=== PATIENT | male | born 1960 | race Caucasian/White ===

== ENCOUNTER → 2018-02-01 | Outpatient (CLI) | payer MEDICAID | LOC: FIMAGING 12:41 | PROVIDERS: ATTEND Internal Medicine Nephrology | DX: N17.9 Acute kidney failure, unspecified (principal) ==

== ENCOUNTER → 2018-05-14 | Outpatient (CLI) | payer MEDICAID | LOC: FIMAGING 14:30 | PROVIDERS: ATTEND Surgery | DX: S27.1XXD Traumatic hemothorax, subsequent encounter (principal) ==

== ENCOUNTER → 2018-05-17 | Outpatient (CLI) | payer MEDICAID | LOC: FIMAGING 14:53 | PROVIDERS: ATTEND Surgery | DX: Z98.890 Other specified postprocedural states (principal); J86.9 Pyothorax without fistula ==

== ENCOUNTER 2018-09-20 10:30 | Inpatient (IN) | payer MEDICAID ==
--- NOTE | 2018-09-20 10:59 | EDPHY ---
H & P Stated Complaint: Left hand pain Time Seen by Provider: 09/20/18 10:48 HPI/ROS: CHIEF COMPLAINT: Left hand pain HISTORY OF PRESENT ILLNESS: The patient presents the ED with complaints of left hand pain that began 3 weeks ago. The patient saw his primary care provider who ordered x-rays which demonstrated demineralization noted to the bases of the index long in ring fingers. The patient also had blood cultures obtained which demonstrated gram-positive cocci in 1 of the bottles. The patient was noted to have a slightly elevated CRP of 18 and a elevated sed rate of 120. The patient reportedly was hospitalized for pneumonia earlier this year. The patient denies any fever. He has mild pain in his left hand predominantly at the base of the metacarpals with movement. The patient reportedly has been taking anti-inflammatories with improvement of his symptoms. He is not yet taken antibiotics. REVIEW OF SYSTEMS: A comprehensive 10 point review of systems is otherwise negative aside from elements mentioned in the history of present illness. Source: Patient - Personal History Current Tetanus Diphtheria and Acellular Pertussis (TDAP): Yes - Medical/Surgical History Hx Asthma: No Hx Chronic Respiratory Disease: No Hx Diabetes: Yes Hx Cardiac Disease: Yes Hx Renal Disease: No Hx Cirrhosis: No Hx Alcoholism: No Hx HIV/AIDS: No Hx Splenectomy or Spleen Trauma: No Other PMH: DMII, HTN, hyperlipidemia, pna with surg procedure - Social History Smoking Status: Never smoked - Physical Exam Exam: General Appearance: Alert, no distress Eyes: Pupils equal and round no pallor or injection ENT, Mouth: Mucous membranes moist Respiratory: There are no retractions, lungs are clear to auscultation Cardiovascular: Regular rate and rhythm Gastrointestinal: Abdomen is soft and nontender, no masses, bowel sounds normal Neurological: 5/5 strength noted all 4 extremities Skin: Mild erythema noted to the dorsum of the left wrist Musculoskeletal: Neck is supple nontender Extremities: Mild tenderness to palpation noted at the dorsum of the left 2nd, 3rd and 4th metacarpals. Psychiatric: Patient is oriented X 3, there is no agitation Constitutional: Initial Vital Signs Temperature (C) 36.5 C 09/20/18 10:41 Heart Rate 82 09/20/18 10:41 Respiratory Rate 16 09/20/18 10:41 Blood Pressure 160/101 H 09/20/18 10:41 O2 Sat (%) 95 09/20/18 10:41 O2 Delivery Mode Room Air Allergies/Adverse Reactions: No Known Allergies Allergy (Verified 09/20/18 10:44) Home Medications: Medication Instructions Recorded Aspirin [Aspirin 81mg (*)] 81 mg PO HS 04/29/18 Atorvastatin Calcium [Lipitor 10 10 mg PO DAILY 04/29/18 mg (*)] Lisinopril [Zestril 5 mg (*)] 5 mg PO DAILY 04/29/18 metFORMIN HCL [Glucophage 500 mg 500 mg PO BIDMEAL 04/29/18 (*)] Insulin Glargine [Lantus Syringe] 28 units SC DAILY #1 vial 05/11/18 Unk Anti Inflam Med From Pcp 09/20/18 Medical Decision Making ED Course/Re-evaluation: I reviewed the patient's past medical records. He was treated for pneumonia complicated by empyema in April of this year. The patient is outpatient images are reviewed in addition to his blood culture which demonstrates gram-positive cocci which is not yet differentiated. The patient was taken for an MRI of the extremity which demonstrates erosive changes consistent with osteomyelitis involving the left wrist and hand. The patient had blood cultures x2 obtained in the emergency department. The patient will be admitted to the hospitalist service for further evaluation and management. Differential Diagnosis: Differential diagnosis considered includes septic arthritis, osteomyelitis, abscess, necrotizing fasciitis, gouty arthritis - Data Points Laboratory Results: Laboratory Results 09/20/18 11:02 09/20/18 11:02 09/20/18 09/20/18 11:02 11:02 WBC 5.42 10^3/uL 10^3/uL (3.80-9.50) RBC 4.69 10^6/uL 10^6/uL (4.40-6.38) Hgb 12.4 g/dL L g/dL (13.7-17.5) Hct 37.7 % L % (40.0-51.0) MCV 80.4 fL L fL (81.5-99.8) MCH 26.4 pg L pg (27.9-34.1) MCHC 32.9 g/dL g/dL (32.4-36.7) RDW 16.4 % H % (11.5-15.2) Plt Count 339 10^3/uL 10^3/uL (150-400) MPV 9.2 fL fL (8.7-11.7) Neut % (Auto) 66.7 % % (39.3-74.2) Lymph % (Auto) 19.2 % % (15.0-45.0) [place] % (Auto) 11.4 % % (4.5-13.0) Eos % (Auto) 1.8 % % (0.6-7.6) Baso % (Auto) 0.7 % % (0.3-1.7) Nucleat RBC Rel Count 0.0 % % (0.0-0.2) Absolute Neuts (auto) 3.61 10^3/uL 10^3/uL (1.70-6.50) Absolute Lymphs (auto) 1.04 10^3/uL 10^3/uL (1.00-3.00) Absolute Monos (auto) 0.62 10^3/uL 10^3/uL (0.30-0.80) Absolute Eos (auto) 0.10 10^3/uL 10^3/uL (0.03-0.40) Absolute Basos (auto) 0.04 10^3/uL 10^3/uL (0.02-0.10) Absolute Nucleated RBC 0.00 10^3/uL 10^3/uL (0-0.01) Immature Gran % 0.2 % % (0.0-1.1) Immature Gran # 0.01 10^3/uL 10^3/uL (0.00-0.10) Sodium 136 mEq/L mEq/L (135-145) Potassium 5.3 mEq/L H mEq/L (3.3-5.0) Chloride 106 mEq/L mEq/L (97-110) Carbon Dioxide 18 mEq/l L mEq/l (22-31) Anion Gap 12 mEq/L mEq/L (6-14) BUN 39 mg/dL H mg/dL (7-23) Creatinine 1.4 mg/dL H mg/dL (0.7-1.3) Estimated GFR 52 Glucose 372 mg/dL H mg/dL (70-100) Calcium 9.6 mg/dL mg/dL (8.5-10.4) Departure - Departure Disposition: [facility] Inpatient Acute Clinical Impression: Osteomyelitis of left hand Condition: Fair Referrals: Zion Albrecht MD [Primary Care Provider] - As per Instructions
[2018-09-20 11:11] LABS: PLATELET COUNT 339 10^3/uL (150-400)
[2018-09-20] MEDS ORDERED: GADOBUTROL 10 ML VIAL IVP ONE (13:10)
[2018-09-20] MEDS ORDERED: ONDANSETRON 4 MG/2 ML VIAL IVP PRN (15:19)
[2018-09-20] MEDS ORDERED: ONDANSETRON DISINTEGRATING 4 MG TAB PO PRN (15:19)
[2018-09-20 15:36] LABS: INR 1.02 (0.83-1.16); PROTIME(PATIENT) 13.6 SEC (12.0-15.0)
[2018-09-20] MEDS: NS 1,000 ML IV SCH (15:41)
[2018-09-20] MEDS ORDERED: D50W 25 GM/50 ML SYR IVP PRN (16:15)
[2018-09-20] MEDS: ceFAZolin 2 GM/DEXTROSE 100 ML IV SCH (16:44)
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
--- NOTE | 2018-09-20 17:12 | PCMIDPN ---
Assessment/Plan: Assessment/Plan: * MSSA bacteremia: Patient with 1 set of blood cultures drawn by primary care physician growing MSSA. No clear etiology for infection although does have some dry skin over hand. Will begin cefazolin post attempted aspiration of left wrist by Orthopedic surgery. Repeat blood cultures have been obtained prior to initiation of antibiotic therapy. Will obtain transthoracic echocardiogram. * Left wrist inflammatory arthropathy: Presentation is unusual for osteomyelitis unless associated with possible foreign body noted on imaging. Clinical findings most suggestive of inflammatory arthropathy such as gout or pseudogout. Will consult hand surgery for further assessment and possible aspiration. * Neck pain: Given presence of MSSA bacteremia, this is concerning for possibility of diskitis or vertebral osteomyelitis. Will obtain C-spine MRI ( will have to be done tomorrow since he received gadolinium are ready today). Time spent, greater than 35 min, which greater than half was spent in education/ counseling/coordination of care related to MSSA bacteremia, wrist arthropathy, and neck pain as outlined above including plan of care. 09/20/18 17:07 09/20/18 17:22 Subjective: Patient seen by our service in April for Streptococcus constellatus empyema which required VATS and decortication. Asked by hospitalist service to reassess patient who was admitted with bacteremia and MRI findings of left wrist osteomyelitis. Patient complains of left wrist pain for 3 weeks. He has been treated empirically for gout which she has had in the past with improvement in his symptoms while taking ibuprofen and colchicine. He notes the swelling has decreased by approximately half. No preceding injury to his hand. He cannot fully extend his digits. No pain in forearm or upper arm. Also complains of neck pain over the lateral cervical region on the left which is been present for approximately same duration of time. No preceding skin injury although does have dry skin over digits. Reviewed blood culture findings with primary care physician with 1 set of blood culture showing growth of MSSA. Other labs notable for creatinine of 1.5, CRP of 18.8 (0-4.9), uric acid 8.1, ESR 120, and rheumatoid factor being negative. Objective: Vital Signs Temp Pulse Resp BP Pulse Ox 36.6 C 85 16 146/88 H 95 09/20/18 15:33 09/20/18 15:33 09/20/18 15:20 09/20/18 15:33 09/20/18 15:33 09/19/18 09/20/18 09/21/18 05:59 05:59 05:59 Intake Total 0 Balance 0 Laboratory Tests 09/20/18 09/20/18 11:02 11:02 WBC 5.42 Hct 37.7 L Plt Count 339 Neut % (Auto) 66.7 Lymph % (Auto) 19.2 Creatinine 1.4 H Blood culture 09/17/2018 showing MSSA (unclear how many sets drawn) MRI of hand with erosive changes of the 2nd and 3rd carpometacarpal joints as well as other carpal bone; mild joint effusion noted; query metal foreign body in this region (patient does not remember preceding injury) - Physical Exam General Appearance: alert, no apparent distress, non-toxic EENT: No scleral icterus, No conjunctival petechiae Respiratory: lungs clear, No respiratory distress Neck: tender lateral (Left with lateral rotation/flexion) Cardiac/Chest: regular rate, rhythm, No systolic murmur Extremities: inflammation (Left hand shows edema most prominent over dorsal aspect with mild pain with range of motion of wrist; cannot fully extend digits ; no overlying erythema; warmth is present) Abdomen: non-tender, No distended Skin: other (Some dry flaking skin over digits of left hand) Neuro/Psych: No confused ICD10 Worksheet Patient Problems: Problems Problem Status Onset Osteomyelitis of left hand Acute Hyperglycemia Acute Pleural effusion on left Acute Right lower lobe lung mass Acute
[2018-09-20] MEDS ORDERED: LIDOCAINE 1% 5 ML SDV IF ONE (17:30)
[2018-09-20] MEDS: ACETAMINOPHEN 325 MG TAB PO PRN ×2 (17:38→21:34)
[2018-09-20] MEDS: INSULIN LISPRO 100 UNIT/ML SC SCH (17:39)
[2018-09-20] MEDS: ASPIRIN EC 81 MG TAB PO SCH (20:51)
--- NOTE | 2018-09-20 21:58 | HOSPPROG ---
Hospitalist Progress Note Assessment/Plan: 57 yo M with hx of prior empyema presenting with left wrist swelling and pain and imaging concerning for osteomyelitis and MSSA bacteremia # left hand osteomyelitis: noted on MRI imaging both here and also at [facility] prior to admission. Ortho and ID consulted, both agree this is an unusual presentation for osteo with only minimal redness/edema and acute presentation however there is a possible foreign body noted on imaging which could be related. Aspiration attempted by ortho and sent for culture, stated on ancef as next. Will monitor. # scott: with baseline creatinine of 0.9 and elevated to 1.4 on admission, presumably related to pre renal etiology, will provide IVF overnight and recheck in am, will check bladder scan as patient has had hx of urinary retention # MSSA bacteremia: from labs drawn from outside facility, started on ancef, repeat cultures sent # hx of empyema # DM2: poorly controlled in the past, started on SSI, oral meds held # IP status, will require > 48 hours stay for eval/mgmt of above Patient new to my care. Old records reviewed and summarized as above. Care plan reviewed with ER doctor and SALVADOR Alberts. Please see SALVADOR Alberts separate H&P for further details. Objective: Vital Signs Temp Pulse Resp BP Pulse Ox 37.0 C 86 16 130/76 H 96 09/20/18 19:41 09/20/18 19:41 09/20/18 19:41 09/20/18 19:41 09/20/18 19:41 Microbiology 09/20/18 17:21 Gram Stain - Final Hand - Swab 09/20/18 17:21 Gram Stain - Final Synovial Fluid - Aspirate Anaerobic Culture - Final 09/19/18 09/20/18 09/21/18 05:59 05:59 05:59 Intake Total 0 Balance 0 PT 13.6 SEC (12.0-15.0) 09/20/18 13:00 INR 1.02 (0.83-1.16) 09/20/18 13:00 ICD10 Worksheet Patient Problems: Problems Problem Status Onset Hyperglycemia Acute Pleural effusion on left Acute Right lower lobe lung mass Acute Osteomyelitis of left hand Acute
[2018-09-21] MEDS: NS 1,000 ML IV SCH ×2 (00:11→09:03)
[2018-09-21] MEDS: ceFAZolin 2 GM/DEXTROSE 100 ML IV SCH ×4 (00:11→23:32)
[2018-09-21 05:39] LABS: PLATELET COUNT 308 10^3/uL (150-400)
[2018-09-21] MEDS: ACETAMINOPHEN 325 MG TAB PO PRN ×3 (07:06→20:00)
[2018-09-21] MEDS: COLCHICINE 0.6 MG CAP/TAB PO SCH (09:03)
[2018-09-21] MEDS: ATORVASTATIN CALCIUM 10 MG TAB PO SCH (09:03)
[2018-09-21] MEDS: INSULIN LISPRO 100 UNIT/ML SC SCH ×3 (09:03→17:49)
--- NOTE | 2018-09-21 10:08 | PDMN ---
Medical Necessity Medical necessity: MCG M600 Osteomyelitis 3 days: 57 yo presents w/ L hand/ wrist edema and pain. BC from PCP + staph aureus. Assessment reveals probable osteomyelitis vs. gouty arthritis vs. septic arthritis vs. foreign body. Hand surg and ID consults ordered. Aspiration cx of hand/wrist pending. Per ID BC concerning, need to look at possibility of diskitis or vertebral osteomyelitis as pt c/o neck pain also. MRI pending. IV antibx and IVF started, pt NPO for now. IP status, will require > 48 hours stay for eval/mgmt of above. Hx pneumonia w/ empyema April 2018, HTN, DM, HLD
--- NOTE | 2018-09-21 11:50 | HOSPPROG ---
Hospitalist Progress Note Assessment/Plan: 57-year-old with a history significant for diabetes and recent empyema in April of this year is admitted with bacteremia. He lives up in [place] and sees Dr. Staley who was evaluating left wrist pain and did blood cultures as well as other blood work, this revealed MSSA bacteremia as well as an elevated sed rate of 120. He had an MRI on admission which had finding suggestive of osteomyelitis with significant erosive changes. His clinical findings however are fairly benign he has had no fevers he does complain of left wrist pain but believes this is consistent with his history of gout. He is being admitted for his positive blood culture in further evaluation of this cause. # bacteremia, MSSA done as an outpatient. Source is unclear, possible left wrist however he also has some neck pain and is undergoing an MRI of his C- spine to rule out epidural abscess. Appreciate ID input * Continue IV antibiotics * Follow up on repeat blood cultures * Evaluation including MRI of his C-spine * Follow-up echocardiogram # left wrist pain, evidence of possible osteomyelitis on MRI however clinical presentation is somewhat unusual for this. Will continue to treat for likely osteomyelitis and appreciate ID and Hand Ortho input. # acute renal insufficiency with elevated creatinine on admission, this has improved today, will continue to monitor and avoid nephrotoxins. # gout, on colchicine and indomethacin. Not currently on allopurinol. # diabetes, type 2 continue his usual medications and add sliding scale insulin # hypertension, stable # dyslipidemia # history of pneumonia complicated by empyema in April of 2018 Subjective: Patient new to me and chart reviewed. Complains of minimal pain in his left wrist, swelling is much improved. Denies any fevers or chills Objective: Vital Signs Temp Pulse Resp BP Pulse Ox 36.7 C 85 16 133/77 H 93 09/21/18 11:29 09/21/18 11:29 09/21/18 11:29 09/21/18 11:29 09/21/18 11:29 Microbiology 09/20/18 17:21 Gram Stain - Final Hand - Swab 09/20/18 17:21 Gram Stain - Final Synovial Fluid - Aspirate Anaerobic Culture - Final Laboratory Results 09/21/18 04:37 09/21/18 04:37 09/20/18 09/21/18 09/22/18 05:59 05:59 05:59 Intake Total 0 Balance 0 PT 13.6 SEC (12.0-15.0) 09/20/18 13:00 INR 1.02 (0.83-1.16) 09/20/18 13:00 - Physical Exam Constitutional: no apparent distress Eyes: PERRL Ears, Nose, Mouth, Throat: moist mucous membranes Cardiovascular: regular rate and rhythym, no murmur, rub, or gallop Respiratory: no respiratory distress, clear to auscultation Gastrointestinal: soft, non-tender abdomen Genitourinary: no bladder fullness Skin: erythema (Left wrist), induration Musculoskeletal: no joint effusions, joint tenderness (Left wrist) Neurologic: AAOx3 Psychiatric: interacting appropriately, not anxious ICD10 Worksheet Patient Problems: Problems Problem Status Onset Hyperglycemia Acute Pleural effusion on left Acute Right lower lobe lung mass Acute Osteomyelitis of left hand Acute
--- NOTE | 2018-09-21 11:51 | CPEKG ---
Test Reason : OPEN Blood Pressure : / mmHG Vent. Rate : 089 BPM Atrial Rate : 089 BPM P-R Int : 140 ms QRS Dur : 086 ms QT Int : 367 ms P-R-T Axes : 048 -44 043 degrees QTc Int : 447 ms Sinus rhythm Left axis deviation Confirmed by Mauricio Robert ([id number]) on 09/21/2018 11:51:20 AM Referred By: Confirmed By:Mauricio Robert
--- NOTE | 2018-09-21 12:02 | ASMTCMCOM ---
CM Note CM Note Notes: Pt is a 57 y/o man admitted for osteomyelitis. ID is consulting. Pt is currently on iv ancef. Needs are TBD at this time. CM to follow. Plan: TBD Date Signed: 09/21/2018 12:01 PM Electronically Signed By:HIGINIO Mirza
--- NOTE | 2018-09-21 12:20 | ECHO ---
[email or web address] [address] Main: [phone] Fax: Transthoracic Echocardiogram Name: LYNDSEY QUIROGA MR#: [id number] Study Date: 09/21/2018 Study Time: 10:52 AM Date of : 1960 Age: 57 year(s) Height: 170.2 cm (67 in.) Weight: 81.65 kg (180 lb.) BSA: 1.93 m2 Gender: Male Examination: Echo Indication: MSSA bacteremia, assess for endocarditis; h/o DM2 HTN Image Quality: Adequate Contrast: Requested by: Marquis Roca BP: 137 mmHg/84 mmHg Heart Rate: Rhythm: Indication: MSSA bacteremia, assess for endocarditis; h/o DM2 HTN Procedure Staff Asset Management Lead: Rosalia Talbot [facility] [place] Reading Physician: Faisal Montoya MD Requesting Provider: Conclusions: Normal size left ventricle. No LV hypertrophy. Low normal left ventricular systolic function. EF is 54 %. No regional wall motion abnormality. There is mild thickening of the mitral valve leaflets. Mild to moderate mitral regurgitation. The aortic valve is tri-leaflet and functions normally. The tricuspid valve is normal in appearance and function. Mild tricuspid regurgitation is present. Right ventricular systolic pressure measures 31mmHg. There is no pulmonic regurgitation seen. No pericardial effusion. In comparison to prior echocardiography from April 2018 there is now mitral regurgitation (mild to moderate) noted. LVEF has dropped from 69% to 54%. Measurements: Chambers Valvular Assessment AV/MV Valvular Assessment TV/PV Normal Normal Normal Name Value Range Name Value Range Name Value Range Ao Yudelka (MM): 3.2 cm (2.2 cm-3.7 AV Vmax: 1.12 m/s (1 m/s-1.7 TR Vmax: 2.53 mm/s ( - ) cm) m/s) TR PGmax: 26 mmHg ( - ) IVSd (2D): 1.1 cm (0.6 cm-1.1 AV maxP mmHg ( - ) syst. PAP: 31 mmHg ( - ) cm) LVOT Vmax: 0.84 m/s (0.7 m/s-1.1 PV Vmax: 1.05 m/s (0.6 m/s-0.9 LVDd (2D): 4.5 cm (4.2 cm-5.9 m/s) m/s) cm) HARMAN (Vmax): 2.6 cm2 ( - ) PV PGmax: 4 mmHg ( - ) LVDs (2D): 3.2 cm (2.1 cm-4 MV E Vmax: 0.35 m/s ( - ) cm) MV A Vmax: 0.67 m/s ( - ) MV E/A: 0.52 ( - ) Patient: LYNDSEY QUIROGA Study Date: 09/21/2018 Page 1 of 2 10:52 AM LVPWd (2D): 0.8 cm (0.6 cm-1 cm) LVOTd 2.1 cm 2.1 cm mm LVEF (BP): 54 % (>=55 %) RVDd(2D): 3.2 cm (1.9 cm-3.8 cmmm) Continued Measurements: Chambers Valvular Assessment AV/MV Valvular Assessment TV/PV Name Value Name Value Name Value LADs: 3.6 cm MV DecTime: 246 m/s CVP (est.): 5 mmHg LADs Lon.2 cm MV E' Septal: 0.04 m/s LA Area: 18.2 cm2 MV E/E' Septal: 8.00 LA Volume: 49 ml MV E/E' Lateral: 5.40 LA Volume Index: 25.4 ml/m2 TAPSE: 1.7 cm RA Area: 13.5 cm2 Additional Vessels Name Value Ao Ascendin.1 cm Findings: Left Ventricle: Normal size left ventricle. No LV hypertrophy. Low normal left ventricular systolic function. EF is 54 %. No regional wall motion abnormality. Normal diastolic LV function. Right Ventricle: Normal size right ventricle. Normal RV function. Left Atrium: The left atrium is normal in size. Right Atrium: The right atrium is normal in size. Mitral Valve: There is mild thickening of the mitral valve leaflets. Mild to moderate mitral regurgitation. No mitral stenosis is present. There is no mitral valve vegetation. Aortic Valve: The aortic valve is tri-leaflet and functions normally. There is no aortic valve regurgitation. No aortic valve stenosis is present. There is no aortic valve vegetation. Tricuspid Valve: The tricuspid valve is normal in appearance and function. Mild tricuspid regurgitation is present. Right ventricular systolic pressure measures 31mmHg. Borderline elevated pumonary artery pressure. No tricuspid valve vegetation. Pulmonic Valve: Pulmonary valve not well visualized. There is no pulmonic regurgitation seen. Aorta: Normal size aortic root measuring 3.2 cm. Normal size ascending aorta measuring 3.1 cm. IVC: Normal size and course of the IVC. Pericardium: No pericardial effusion. (No Signature Object) Patient: LYNDSEY QUIROGA Study Date: 09/21/2018 Page 2 of 2 10:52 AM [id number]
--- NOTE | 2018-09-21 12:29 | PDCONSULT ---
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 Yesterday recieved a call regarding patient for a hand/ortho consult. Patient appeared to have some form of inflammatory arthropathy of left wrist/hand. He states he had history of Gout which has been treated with cholchicine and NSAIDs. 1 of 3 blood cultures take by PCP was pos for MSSA. ID (Dr. Roca) has been consulted, and Hospitalist is currently following. PHYSICAL EXAM Left wrist examined shows mild to moderate swelling. No erythema and no warmth noted. No fluctuance. Distal Nuerovasculature intact. wiggles fingers with discomfort. PROCEDURE Patients left hand was prepped with chlorhexadol. 2cc 1% Lidocane was used for anesthetic. 18G needle was used to attempt aspiration of CMC joint over 1 and 2 digit region. No fluid was obtainable. Slight amount of blood aspirated. This was sent for gram stain and cultures. LAB RESULTS Gram stain shows no organisms Culture pending ASSESSMENT/PLAN Patient confirmed to have Bacteremia and is being treated by ID (Dr. Roca) with IV ABX Presentation is very abnormal for septic wrist/hand. Exam does not show significant signs for active hand infection. PE and presentation is inflammatory arthropathy, acute on chronic from possible gout. However there may be superimposed infection. But undetermined at this time. Dr Lucio does not feel surgery/wash-out is warranted at this point in time. He suggests ID continue management with IV abx for bacteremia, and patient continue gout treatment. If symptoms change, or swelling, redness, warmth present over wrist, please inform us, and we will consider a washout of his left hand/wrist. We appreciate the consult, and are here for any further questions or concerns. Ayad RIDLEY for Dr. Naveed LEES (Orthopedic Surgery)
--- NOTE | 2018-09-21 12:42 | PCMIDPN ---
Assessment/Plan: # MSSA bacteremia. Echo results reviewed, shows a reduction in ejection fraction to 54%, new [id number] mitral regurgitation. Reviewed MRI findings L wrist. Diffuse right hand swelling seems somewhat atypical for infection, without focal area of erythema or joint swelling. Patient clinically improved on therapy for gout. --MRI C-spine --continue cefazolin --follow up on blood cx repeated on admission --may have to consider GIDEON with worsening MR completely exclude endocarditis # Left-sided empyema/pneumonia due to Streptococcus Constellatus - source likely oral. S/p VATS 05/02/2018 and 05/06/2018 # Poor DM control w HgAIC = 10 : likely predisposing to recurrent infections meds cefazolin 2gm IV q8h, #1 micro 09/20 blood cx (2) : pending 09/20 joint aspirate --> put in swab container: gram stain neg, Cx pending 09/17 blood cx 1 set MSSA 05/05/18 HIV negative Subjective: Patient admits to neck pain with specific questioning. Also with left hand pain and limited range of motion. No side effects of antibiotics were noted Objective: Vital Signs Temp Pulse Resp BP Pulse Ox 36.7 C 85 16 133/77 H 93 09/21/18 11:29 09/21/18 11:29 09/21/18 11:29 09/21/18 11:29 09/21/18 11:29 Microbiology 09/20/18 17:21 Gram Stain - Final Hand - Swab 09/20/18 17:21 Gram Stain - Final Synovial Fluid - Aspirate Anaerobic Culture - Final Laboratory Results 09/21/18 04:37 09/21/18 04:37 09/20/18 09/21/18 09/22/18 05:59 05:59 05:59 Intake Total 0 Balance 0 - Physical Exam General Appearance: alert, no apparent distress EENT: pale conjunctiva, poor dentition, No thrush Respiratory: lungs clear, No accessory muscle use Neck: tender lateral Cardiac/Chest: regular rate, rhythm, No systolic murmur Extremities: other (Diffuse L hand swelling, with limited ROM wrist ), No pedal edema Abdomen: non-tender, soft Skin: No rash, No embolic lesions Neuro/Psych: alert, normal mood/affect, oriented x 3 - Time Spent With Patient Time Spent with Patient: greater than 35 minutes Time Spent with Patient: Greater than 35 minutes spent on this patients care, greater than 50% of time spent counseling, educating, and coordinating care regarding the above mentioned plan. ICD10 Worksheet Patient Problems: Problems Problem Status Onset Osteomyelitis of left hand Acute Hyperglycemia Acute Pleural effusion on left Acute Right lower lobe lung mass Acute
[2018-09-21] MEDS ORDERED: GADOBUTROL 10 ML VIAL IVP ONE (16:36)
[2018-09-21] MEDS: ASPIRIN EC 81 MG TAB PO SCH (20:00)
[2018-09-21] MEDS ORDERED: INSULIN LISPRO 100 UNIT/ML SC ONE (21:45)
[2018-09-21] MEDS: MELATONIN 3 MG TAB PO PRN (22:26)
[2018-09-22 05:21] LABS: PLATELET COUNT 325 10^3/uL (150-400)
--- NOTE | 2018-09-22 08:35 | PDCONSULT ---
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 Yesterday recieved a call regarding patient for a hand/ortho consult. Patient appeared to have some form of inflammatory arthropathy of left wrist/hand. He states he had history of Gout which has been treated with cholchicine and NSAIDs. 1 of 3 blood cultures take by PCP was pos for MSSA. ID (Dr. Roca) has been consulted, and Hospitalist is currently following. PHYSICAL EXAM Left wrist examined shows mild to moderate swelling. No erythema and no warmth noted. No fluctuance. Distal Nuerovasculature intact. wiggles fingers with discomfort. Same/ mild improvement since seen yesterday. PROCEDURE Patients left hand was prepped with chlorhexadol. 2cc 1% Lidocane was used for anesthetic. 18G needle was used to attempt aspiration of CMC joint over 1 and 2 digit region. No fluid was obtainable. Slight amount of blood aspirated. This was sent for gram stain and cultures. LAB RESULTS Joint aspirate: Gram stain shows no organisms Culture pending Blood Cultures: No growth after 36 hours ASSESSMENT/PLAN Patient is being treated by ID (Dr. Roca) with IV ABX. Echo has been ordered to r/o endocarditis Presentation is very abnormal for septic wrist/hand. Exam does not show significant signs for active hand infection. PE and presentation is inflammatory arthropathy, acute on chronic from possible gout. At this point in time it appears his left wrist pain is most likely crystalopathy in nature. Dr Lucio does not feel surgery/wash-out is warranted at this point in time. He suggests ID continue management with IV abx for bacteremia, and patient continue gout treatment. If symptoms change, or swelling, redness, warmth present over wrist, please inform us, and we will consider a washout of his left hand/wrist. We appreciate the consult, and are here for any further questions or concerns. Ayad RIDLEY for Dr. Naveed LEES (Orthopedic Surgery)
[2018-09-22] MEDS: INSULIN LISPRO 100 UNIT/ML SC SCH ×3 (09:16→17:27)
[2018-09-22] MEDS: ceFAZolin 2 GM/DEXTROSE 100 ML IV SCH ×3 (09:16→23:37)
[2018-09-22] MEDS: COLCHICINE 0.6 MG CAP/TAB PO SCH (09:17)
[2018-09-22] MEDS: ATORVASTATIN CALCIUM 10 MG TAB PO SCH (09:17)
--- NOTE | 2018-09-22 09:50 | PCMIDPN ---
Assessment/Plan: # MSSA bacteremia. Echo results reviewed, shows a reduction in ejection fraction to 54%, new [id number] mitral regurgitation. Now with left paraspinous C2/C3 through C5/C6 phlegmon 4 x 2 x 6 cm with to smaller abscess , osteomyelitis of the left C4-C5 facet; no epidural abscess or diskitis --neurosurgery consult --GIDEON to evaluate mitral valve --due to recurrent severe infection, check immunoglobulins, repeat HIV screen --check labs in the a.m. # history of left-sided empyema/pneumonia due to Streptococcus Constellatus - source likely oral. S/p VATS 05/02/2018 and 05/06/2018 # Poor DM control w HgAIC = 10 : likely predisposing to recurrent infections meds cefazolin 2gm IV q8h, #2 micro 09/20 blood cx (2) : NGTD 09/20 joint aspirate --> put in swab container: gram stain neg, Cx pending 09/17 blood cx 1 set MSSA (From outside lab, record in chart) 05/05/18 HIV negative Subjective: Patient states that he has been unable to use his left hand x3 weeks. No residual left hand pain. Mild swelling of the left hand that is significantly improved. Denies chest pain or shortness of breath. His left neck pain is improved since admission. Objective: Vital Signs Temp Pulse Resp BP Pulse Ox 37.0 C 94 20 138/91 H 92 09/22/18 07:57 09/22/18 07:57 09/22/18 07:57 09/22/18 07:57 09/22/18 07:57 Microbiology 09/20/18 17:21 Gram Stain - Final Hand - Swab Laboratory Results 09/22/18 04:43 09/22/18 04:43 09/21/18 09/22/18 09/23/18 05:59 05:59 05:59 Intake Total 0 1450 Balance 0 1450 Exam Palmar skin breakdown, cracking - Physical Exam General Appearance: alert, no apparent distress, non-toxic EENT: poor dentition Respiratory: lungs clear, No accessory muscle use Cardiac/Chest: regular rate, rhythm, No systolic murmur Extremities: other (Left hand edema), No pedal edema Abdomen: non-tender, soft Male Genitalia: No burks Skin: No rash Neuro/Psych: alert, normal mood/affect, oriented x 3, motor weakness (Left hand both extension and flexion. Motor was intact at shoulder and elbow bilaterally) , other (Left arm wasting) - Time Spent With Patient Time Spent with Patient: greater than 35 minutes (care coordinated with Neurosurg team and Dr. Camargo) Time Spent with Patient: Greater than 35 minutes spent on this patients care, greater than 50% of time spent counseling, educating, and coordinating care regarding the above mentioned plan. ICD10 Worksheet Patient Problems: Problems Problem Status Onset Osteomyelitis of left hand Acute Hyperglycemia Acute Pleural effusion on left Acute Right lower lobe lung mass Acute
[2018-09-22] MEDS ORDERED: ALTEPLASE 2 MG VIAL IVP PRN (10:23)
[2018-09-22] MEDS ORDERED: NS 1,000 ML IV ONE (16:07)
--- NOTE | 2018-09-22 16:07 | PDCONSULT ---
Barrel Assembler Helper Note: Patient ate some breakfast and lunch today. Will proceed with GIDEON in the morning. NPO after midnight. Spoke with patient, who was in agreement with these plans.
--- NOTE | 2018-09-22 16:28 | HOSPPROG ---
Hospitalist Progress Note Assessment/Plan: #MSSA bacteremia: C4-5 osteo, C2/3-C5/6 phlegmon. TTE shows reduced EF, progressive MR. -NSGY consulted with concern of nerve impingement, LUE weakness -cont IV abx -GIDEON in morning # Left wrist pain: gout vs infection? Continue treatment for both #RALPH: resolved. # gout, on colchicine and indomethacin. Not currently on allopurinol. # DM 2: A1c 10%. SSI, may add low-dose glargine # HTN: restart ACEI now that Cr improved #HLD: statin # h/o empyema: April 2018 #Diet: NPO after MN #Disp: inpatient admission for IV abx, GIDEON. Case d/w Dr. Li Subjective: left arm weakness for past 3 weeks Objective: Vital Signs Temp Pulse Resp BP Pulse Ox 36.8 C 71 18 147/88 H 96 09/22/18 16:00 09/22/18 16:00 09/22/18 16:00 09/22/18 16:00 09/22/18 16:00 Microbiology 09/20/18 17:21 Gram Stain - Final Hand - Swab Laboratory Results 09/22/18 04:43 09/22/18 04:43 09/21/18 09/22/18 09/23/18 05:59 05:59 05:59 Intake Total 0 1450 Balance 0 1450 PT 13.6 SEC (12.0-15.0) 09/20/18 13:00 INR 1.02 (0.83-1.16) 09/20/18 13:00 - Time Spent With Patient Time Spent with Patient: greater than 35 minutes Time Spent with Patient: Greater than 35 minutes spent on this patients care, greater than 50% of time spent counseling, educating, and coordinating care regarding the above mentioned plan. - Physical Exam Constitutional: other (thin) Eyes: PERRL Ears, Nose, Mouth, Throat: moist mucous membranes Cardiovascular: regular rate and rhythym Respiratory: no respiratory distress Gastrointestinal: normoactive bowel sounds Genitourinary: No burks in urethra Skin: warm Musculoskeletal: other (decreased left hand otolaryngologist. Hands swollen, no TTP. Moderate significant of LUE compared to right) Neurologic: CN II-XII Intact Psychiatric: interacting appropriately ICD10 Worksheet Patient Problems: Problems Problem Status Onset Osteomyelitis of left hand Acute Hyperglycemia Acute Pleural effusion on left Acute Right lower lobe lung mass Acute
[2018-09-22] MEDS: ASPIRIN EC 81 MG TAB PO SCH (20:09)
[2018-09-22] MEDS: ACETAMINOPHEN 325 MG TAB PO PRN (20:19)
[2018-09-22] MEDS: MELATONIN 3 MG TAB PO PRN (20:19)
[2018-09-22] MEDS ORDERED: INSULIN LISPRO 100 UNIT/ML SC ONE (21:00)
--- NOTE | 2018-09-23 02:27 | GCON ---
DATE OF CONSULTATION: 09/22/2018 HISTORY OF PRESENT ILLNESS: The patient is a 57-year-old male who presented to the emergency department due to complaints of left wrist pain and edema as well as neck pain. He was recently treated for empyema and pneumonia that required IV antibiotics. His left wrist pain and neck pain have been present for the past 3 weeks. He denies any upper extremity radicular pain or numbness or tingling. He has had limited range of motion of his left hand due to the pain as well as the swelling that is present there. The ROM of his left hand has improved compared to the time of initial onset. Denies fever, chills, headaches , nausea, or vomiting. PAST MEDICAL HISTORY: Diabetes, hypertension, hyperlipidemia. PAST SURGICAL HISTORY: Denies. SOCIAL HISTORY: Patient admits to occasional use of alcohol. Denies tobacco or recreational drug use. FAMILY HISTORY: Father had diabetes and heart disease. ALLERGIES: No known drug allergies. HOME MEDICATIONS: Aspirin, atorvastatin, colchicine, glimepiride, ibuprofen, Indocin, lisinopril, metformin. REVIEW OF SYSTEMS: Negative except for what was stated in the HPI. PHYSICAL EXAM: Patient seen and examined, appears to be in no apparent distress. Mood and affect are appropriate. Alert and oriented. Blood pressure 129/78, heart rate 86, respiration rate is 18, breathing 97% on room air, temperature 37.3. Extraocular movements are intact. Pupils equal and reactive. Facial expression is symmetrical. Speech is fluent. Hearing is grossly intact. Muscle strength is well preserved in his right upper extremity at a 5/5 and his right upper extremity and his bilateral lower extremities at a 5/5. Left upper extremity strength is 5/5 except for custom furrier strength at 3/5, wrist flexion and extension at 3/5. Left deltoid, biceps and triceps 5/5. Sensation is intact to light touch. RESULTS: White count 5.31, hemoglobin 12.6, hematocrit 38.1, platelet count 325. PT 13.6, INR 1.02. Sodium 140, potassium 4.9, chloride 107, bicarb 21, BUN 16, creatinine 1.1. MRI of the cervical spine completed on September 21: Left paraspinal phlegmon and microabscesses extending from the C2-C3 through the C5-C6 levels adjacent to the left lamina and facets. Additional left C4-5 facet osteomyelitis with left neuroforaminal enhancing phlegmon. No diskitis or epidural abscess. No central canal stenosis or cord compression. ASSESSMENT AND PLAN: In summary, the patient is a 57-year-old male with bacteremia with neck pain. MRI of the cervical spine demonstrates left paraspinal microabscesses as well as a left C4-C5 facet osteomyelitis. There is no epidural abscess or cord compression evident on the MRI. We discussed his MRI cervical spine with Interventional Radiology to determine if there was any area that they could drain or aspirate with the paraspinal abscesses; however, there is not one large collection that they could drain. At this point in time, his neck pain is improving slightly and there is no epidural abscess, and thus we do not advise any surgical intervention. We recommend continuing with medical management with IV antibiotics directed by Infectious Disease. His left-hand weakness is likely due to the localized infection and edema as mobility and strength are improving per patient as the edema decreases. We will continue to follow along with the patient. The patient was seen by myself and Dr. Miranda Gutierrez. /[id number]/MODL MTDD
[2018-09-23 04:46] LABS: PLATELET COUNT 299 10^3/uL (150-400)
[2018-09-23] MEDS: NS 1,000 ML IV SCH ×2 (05:15→21:27)
[2018-09-23 07:21] LABS: HIV TYPE 1 AND 2 NEGATIVE (NEGATIVE)
--- NOTE | 2018-09-23 07:28 | NEUSURGPN ---
Assessment/Plan: 57y/o male with bacteriemia, C4/5 left facet osteomyelitis with paraspinal abscess -Continue abx at this time -will continue to monitor, no acute neurosurgical intervention recommended at this time -Optimize boss management -Please notify NS with any change in neuro/motor exam Subjective: Pain improving. wrist strength improving Objective: NAD A&Ox3 MAEx4 5/5 and equal in BUE and BLE, except left circuit designer 3+/5, WF/WE 3/5 - Physician Discussed Patient with : Brenda Neurosurgery Physical Exam - Vitals, I&O, Labs I and O 09/22/18 09/23/18 09/24/18 05:59 05:59 05:59 Intake Total 1450 Balance 1450 Intake: Oral (ml) 550 IV Intake (ml) 900 Other: Intake Quantity Yes Yes Sufficient Number of Voids Toilet 2 Number of Stools Toilet 1 Microbiology 09/20/18 17:21 Gram Stain - Final Hand - Swab Vital Signs Temp Pulse Resp BP Pulse Ox 36.6 C 87 16 143/81 H 94 09/23/18 04:00 09/23/18 04:00 09/23/18 04:00 09/23/18 04:00 09/23/18 04:00 Laboratory Results 09/23/18 04:28 09/23/18 04:28 ICD10 Worksheet Patient Problems: Problems Problem Status Onset Osteomyelitis of left hand Acute Hyperglycemia Acute Pleural effusion on left Acute Right lower lobe lung mass Acute
[2018-09-23] MEDS: INSULIN LISPRO 100 UNIT/ML SC SCH ×3 (07:42→18:26)
[2018-09-23] MEDS: ceFAZolin 2 GM/DEXTROSE 100 ML IV SCH ×2 (07:54→15:49)
[2018-09-23] MEDS: ATORVASTATIN CALCIUM 10 MG TAB PO SCH (07:54)
[2018-09-23] MEDS: COLCHICINE 0.6 MG CAP/TAB PO SCH (07:54)
[2018-09-23] MEDS ORDERED: INSULIN GLARGINE 100 UNITS/ML UNIT SC SCH (10:00)
--- NOTE | 2018-09-23 10:03 | HOSPPROG ---
Hospitalist Progress Note Assessment/Plan: #MSSA bacteremia: C4-5 osteo, C2/3-C5/6 phlegmon. TTE shows reduced EF, progressive MR. -NSGY consulted with concern of nerve impingement, LUE weakness. Nonoperative at this time -GIDEON negative for vegetations -DC tomorrow with IV abx x 8 weeks, repeat MRI Thursday #Left wrist pain: gout vs infection? Continue treatment for both #RALPH: resolved. #Gout: Colchicine and indomethacin. Not currently on allopurinol. # DM 2: A1c 10%. Add Glargine 5 units, SSI # HTN: restart ACEI now that Cr improved #HLD: statin # h/o empyema: April 2018 #Diet: regular #Disp: inpatient admission for IV abx, GIDEON. Case d/w Dr. Li. Plan to DC tomorrow if clinically stable Subjective: min pain in left hand Objective: Vital Signs Temp Pulse Resp BP Pulse Ox 36.9 C 95 16 151/78 H 91 L 09/23/18 08:00 09/23/18 08:00 09/23/18 08:00 09/23/18 08:00 09/23/18 08:00 Microbiology 09/20/18 17:21 Gram Stain - Final Hand - Swab Laboratory Results 09/23/18 04:28 09/23/18 04:28 09/22/18 09/23/18 09/24/18 05:59 05:59 05:59 Intake Total 1450 Balance 1450 PT 13.6 SEC (12.0-15.0) 09/20/18 13:00 INR 1.02 (0.83-1.16) 09/20/18 13:00 - Physical Exam Constitutional: no apparent distress Eyes: PERRL Ears, Nose, Mouth, Throat: moist mucous membranes Cardiovascular: regular rate and rhythym Respiratory: no respiratory distress Gastrointestinal: normoactive bowel sounds Genitourinary: no bladder fullness Skin: warm Musculoskeletal: other (left hand swollen) ICD10 Worksheet Patient Problems: Problems Problem Status Onset Osteomyelitis of left hand Acute Hyperglycemia Acute Pleural effusion on left Acute Right lower lobe lung mass Acute
[2018-09-23] MEDS ORDERED: MIDAZOLAM 2 MG/2 ML VIAL ONE (11:18)
[2018-09-23] MEDS ORDERED: fentaNYL 100 MCG/2 ML INJ ONE (11:18)
--- NOTE | 2018-09-23 11:18 | PDPROPOC ---
Sedation Plan of Care Sedation Plan of Care: vital signs stable, mental status noted, patient educated of risks, benefits, alternatives, patient can tolerate sedation ASA Classification: ASA 2 Planned drugs: fentanyl, midazolam Mallampati Score: Class 1 Mallampati Reference Image: Patient passed 3-3-2 rule?: Yes
--- NOTE | 2018-09-23 11:18 | PDHPUP ---
History & Physical Update H&P update statement: This history and physical update is based on an assessment of the patient which was completed after admission or registration (within 24 hours), but prior to the surgery/procedure. H&P update: H&P reviewed & patient examined, no change in patient's condition since H&P completed H&P changes: GIDEON today for assessment of possible valve pathology
--- NOTE | 2018-09-23 11:49 | ASMTCMCOM ---
CM Note CM Note Notes: Pts case discussed w/ TRUNG Dutton. Pt is getting a GIDEON today in [facility]. Pt will need ivabx at time of d/c. Referral sent to [facility] and several HC agencies. CM to follow. Plan: [facility] barrera/ TRUNG SKINNER Date Signed: 09/23/2018 11:49 AM Electronically Signed By:HIGINIO Mirza
--- NOTE | 2018-09-23 11:52 | PDCARTEE ---
CAR GIDEON CAR GIDEON: INDICATION FOR GIDEON: Assessment for vegetations with bacteremia Risks and benefits were discussed with the patient today Preliminary report (1) Normal LVEF (60%) (2) Normal wall motion (3) Normal chamber dimensions (4) Grossly normal mitral valve without vegetation or significant regurgitation (5) Trileaflet aortic valve without vegetation or insufficiency (6) Grossly normal tricuspid valve without regurgitation (7) Grossly normal pulmonic valve (8) No thrombus to the left atrial appendage (9) Bubble contrast injection without right to left passage noted (10) No atheroma to the descending aorta No complications. Patient tolerated procedure without complications I texted hospitalist with results (no vegetations)
[2018-09-23] MEDS: INDOMETHACIN 25 MG CAP PO SCH ×2 (13:47→18:26)
[2018-09-23] MEDS: LISINOPRIL 5 MG TAB PO SCH (13:47)
--- NOTE | 2018-09-23 15:50 | PCMIDPN ---
Assessment/Plan: # MSSA bacteremia and left paraspinous C2/C3 through C5/C6 phlegmon 4 x 2 x 6 cm with to smaller abscess , osteomyelitis of the left C4-C5 facet; no epidural abscess or diskitis and OM of multiple L carpel bones. GIDEON neg for endocarditis. --Abx through 11/15/18 --reviewed risks and benefits of abx, planned monitoring and stressed importance of repeat MRI, and that my preference is he remains in hospital for repeat MRI next week. Reviewed importance of returning to hospital with neurologic symptoms --dc ok tomorrow # history of left-sided empyema/pneumonia due to Streptococcus Constellatus - source likely oral. S/p VATS 05/02/2018 and 05/06/2018 # Poor DM control w HgAIC = 10 : likely predisposing to recurrent infections meds cefazolin 2gm IV q8h, #3 micro 09/20 blood cx (2) : NGTD 09/20 joint aspirate --> put in swab container: gram stain neg, Cx pending 09/17 blood cx 1 set MSSA (From outside lab, record in chart) Subjective: reports marked improvement in L neck pain and improved function L hand no diarrhea no rash Objective: Vital Signs Temp Pulse Resp BP Pulse Ox 36.9 C 92 18 134/77 H 93 09/23/18 15:31 09/23/18 15:31 09/23/18 15:31 09/23/18 15:31 09/23/18 15:31 Microbiology 09/20/18 17:21 Gram Stain - Final Hand - Swab Laboratory Results 09/23/18 04:28 09/23/18 04:28 09/22/18 09/23/18 09/24/18 05:59 05:59 05:59 Intake Total 1450 Balance 1450 C-Reactive Protein 65.8 mg/L (<10.0) H 09/23/18 04:28 - Physical Exam General Appearance: alert, no apparent distress EENT: poor dentition, No scleral icterus Respiratory: No accessory muscle use Neck: supple Neuro/Psych: alert, normal mood/affect, oriented x 3, other (L hand weakness seems a little better) - Time Spent With Patient Time Spent with Patient: greater than 35 minutes (reviewed risks and benefits of abx, planned monitoring and stressed importance of repeat MRI, and that my preference is he remains in hospital for repeat MRI next week. Reviewed importance of returning to hospital with neurologic symptoms.) Time Spent with Patient: Greater than 35 minutes spent on this patients care, greater than 50% of time spent counseling, educating, and coordinating care regarding the above mentioned plan. ICD10 Worksheet Patient Problems: Problems Problem Status Onset Osteomyelitis of left hand Acute Hyperglycemia Acute Pleural effusion on left Acute Right lower lobe lung mass Acute
--- NOTE | 2018-09-23 16:29 | PDIAF ---
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 PICC Care - Routine: Yes - Orders Services needed: Home Care, Registered Nurse Home Care Face to Face: I certify that this patient was under my care and that I had the required [id number] encounter meeting the encounter requirements on the discharge day. My findings support the fact that the patient is homebound as defined in Home Care Face to Face Continued: CMS Chapter 7 Medicare Benefits Manual 30.1.1 , The condition of the patient is such that there exists a normal inability to leave home and consequently, leaving home would require a considerable and taxing effort. - Labs/Radiology CBC w/diff Date: 09/27/18 (weekly thursday) CMP Date: 09/27/18 (weekly thursday) CRP Date: 09/27/18 (weekly thursday) - Follow Up Care Current Providers and Referrals: Zion Albrecht MD [Primary Care Provider] - As per Instructions Zena Li MD [Medical Doctor] - follow up in 2 weeks
[2018-09-23] MEDS: ASPIRIN EC 81 MG TAB PO SCH (21:28)
[2018-09-23] MEDS: MELATONIN 3 MG TAB PO PRN (21:29)
[2018-09-23] MEDS: ACETAMINOPHEN 325 MG TAB PO PRN (21:29)
[2018-09-24] MEDS ORDERED: INSULIN LISPRO 100 UNIT/ML SC SCH ×2 (01:15→21:00)
[2018-09-24] MEDS: ceFAZolin 2 GM/DEXTROSE 100 ML IV SCH ×2 (01:40→07:51)
--- NOTE | 2018-09-24 07:33 | NEUSURGPN ---
Assessment/Plan: 57y/o male with bacteriemia, C4/5 left facet osteomyelitis with paraspinal abscess -Continue abx at this time -will continue to monitor, no acute neurosurgical intervention recommended at this time -Optimize boss management -Ok to discharge from neurosurgery standpoint. Explained to patient to call us should he develop an increase in pain or change in symptoms (numbness/tingling/ weakness) -Please notify NS with any change in neuro/motor exam Discussed with Dr. Gutierrez Subjective: Neck pain improving as well as wrist mobility/strength. Objective: Awake. Alert. PERRL. EOMI Muscle strength full at 5/5 except for left correction officer reformatory strength at 3/5, wrist flexion/ extension 4-/5 - Physician Discussed Patient with : Brenda Neurosurgery Physical Exam - Vitals, I&O, Labs I and O 09/23/18 09/24/18 09/25/18 05:59 05:59 05:59 Intake Total 300 Balance 300 Intake: Oral (ml) 300 Other: Intake Quantity Yes NPO majority of the day Sufficient Number of Stools Toilet 1 Microbiology 09/20/18 17:21 Gram Stain - Final Hand - Swab Vital Signs Temp Pulse Resp BP Pulse Ox 36.6 C 66 16 116/68 95 09/24/18 07:23 09/24/18 07:23 09/24/18 07:23 09/24/18 07:23 09/24/18 07:23 Laboratory Results 09/23/18 04:28 09/23/18 04:28 ICD10 Worksheet Patient Problems: Problems Problem Status Onset Osteomyelitis of left hand Acute Hyperglycemia Acute Pleural effusion on left Acute Right lower lobe lung mass Acute
[2018-09-24] MEDS: LISINOPRIL 5 MG TAB PO SCH (07:47)
[2018-09-24] MEDS: INDOMETHACIN 25 MG CAP PO SCH (07:49)
[2018-09-24] MEDS: COLCHICINE 0.6 MG CAP/TAB PO SCH (07:50)
[2018-09-24] MEDS: ATORVASTATIN CALCIUM 10 MG TAB PO SCH (07:51)
--- NOTE | 2018-09-24 08:21 | HOSPPROG ---
Hospitalist Progress Note Assessment/Plan: #MSSA bacteremia: C4-5 osteo, C2/3-C5/6 phlegmon. TTE shows reduced EF, progressive MR. -NSGY consulted with concern of nerve impingement, LUE weakness. Nonoperative at this time -GIDEON negative for vegetations -DC tomorrow with IV abx x 8 weeks, repeat MRI Thursday #Left wrist pain: gout vs infection? Continue treatment for both #RALPH: resolved. #Gout: Colchicine and indomethacin. Not currently on allopurinol. # DM 2: A1c 10%. Add Glargine 5 units, SSI # HTN: restart ACEI now that Cr improved #HLD: statin # h/o empyema: April 2018 #Diet: regular #Disp: inpatient admission for IV abx, GIDEON. Case d/w Dr. Li. Plan to DC tomorrow if clinically stable Objective: Vital Signs Temp Pulse Resp BP Pulse Ox 36.6 C 66 16 126/71 H 95 09/24/18 07:23 09/24/18 07:23 09/24/18 07:23 09/24/18 07:47 09/24/18 07:23 Microbiology 09/20/18 17:21 Gram Stain - Final Hand - Swab Laboratory Results 09/23/18 04:28 09/23/18 04:28 09/23/18 09/24/18 09/25/18 05:59 05:59 05:59 Intake Total 300 Balance 300 PT 13.6 SEC (12.0-15.0) 09/20/18 13:00 INR 1.02 (0.83-1.16) 09/20/18 13:00 ICD10 Worksheet Patient Problems: Problems Problem Status Onset Osteomyelitis of left hand Acute Hyperglycemia Acute Pleural effusion on left Acute Right lower lobe lung mass Acute
[2018-09-24] MEDS ORDERED: INSULIN GLARGINE 100 UNITS/ML UNIT SC SCH (09:00)
[2018-09-24] MEDS: INSULIN LISPRO 100 UNIT/ML SC SCH (09:32)
[2018-09-24 12:30] VITALS: BP 137/84
--- NOTE | 2018-09-24 12:46 | PDIAF ---
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 PICC Care - Routine: Yes - Orders Services needed: Home Care, Registered Nurse Home Care Face to Face: I certify that this patient was under my care and that I had the required [id number] encounter meeting the encounter requirements on the discharge day. My findings support the fact that the patient is homebound as defined in Home Care Face to Face Continued: CMS Chapter 7 Medicare Benefits Manual 30.1.1 , The condition of the patient is such that there exists a normal inability to leave home and consequently, leaving home would require a considerable and taxing effort. Diet Recommendation: ADA 2000 consistent carb Diet Texture: Regular Texture Diet Additional Instructions: 1. Follow up Dr. Albrecht for diabetes and uptitration of insulin - Labs/Radiology CBC w/diff Date: 09/27/18 (weekly thursday) CMP Date: 09/27/18 (weekly thursday) CRP Date: 09/27/18 (weekly thursday) - Follow Up Care Current Providers and Referrals: Zion Albrecht MD [Primary Care Provider] - As per Instructions Zena Li MD [Medical Doctor] - follow up in 2 weeks
--- NOTE | 2018-09-24 13:43 | ASMTLACE ---
LACE Length of stay for Answers: 3 days current admission Acuity / Level of Answers: Yes Care: Did the patient have an inpatient admission? Comorbidities - select Answers: Diabetes (uncontrolled or all that apply controlled) Other Notes: HTN; HLD # of Emergency department Answers: 1-2 visits in the last 6 months Score: 9 Date Signed: 09/24/2018 01:42 PM Electronically Signed By:Jane Rodriguez RN
--- NOTE | 2018-09-24 13:47 | GDS ---
DISCHARGE DIAGNOSES: 1. MSSA bacteremia and left paraspinous C2-C3 through C5-C6 phlegmon, osteomyelitis of the left C4-C5 facet. 2. History of left-sided empyema/pneumonia due to Streptococcus constellatus. 3. Uncontrolled diabetes. 4. Gout. 5. Left hand weakness. 6. Acute kidney injury. 7. Hypertension. 8. Hyperlipidemia. CONSULTATIONS: 1. Infectious Disease. 2. Cardiology. 3. Neurosurgery. 4. Orthopedics. PROCEDURES: GIDEON: 09/23/2018. Normal LVEF of 60%. No vegetation. No wall motion abnormalities. HISTORY OF PRESENT ILLNESS: A pleasant 57-year-old male with history of diabetes and prior empyema presents with left hand and wrist edema for the last 3 weeks. He denied traumatic event. No fevers, chills, nausea, vomiting. He initially presented to his PCP, Dr. Albrecht, who gave him NSAIDs and took x- rays. One culture came back positive for Staph aureus. MRI here showed findings suggestive of osteomyelitis of the 2nd and 3rd carpometacarpal joints. Cervical spine MRI on 09/21 showed left paraspinal phlegmon micro abscesses extending from C2-C3 through C5-C6, left C4-C5 facet osteomyelitis. HOSPITAL COURSE BY PROBLEM: 1. MSSA bacteremia with C4-C5 osteomyelitis and C2-C3 to C5-6 phlegmon: Infectious Disease and Neurosurgery were consulted. No surgery warranted at this time. GIDEON was negative for vegetations .IV cefazolin through 11/15/2018 with weekly labs. Follow up with Dr. Li with repeat MRI. 2. Left wrist pain: Concern for gout versus osteomyelitis. Orthopedics was consulted and think more consistent with gout, but this is improving. Hand is still weak but does have increased range of motion today. Continue colchicine at discharge and indomethacin as needed (he was having some diarrhea with this). 3. Acute kidney injury: resolved with fluids. 4. Gout: Colchicine. 5. Uncontrolled type 2 diabetes: A1c was 10. On metformin and Amaryl at home. Continue metformin, discontinue Amaryl, and start glargine daily. He has a glucometer at home. PCP for uptitration. 6. Hypertension: Restarted AKIKO inhibitor once creatinine improved. 7. Hyperlipidemia: Statin. 8. History of empyema: He is stable from a lung standpoint. DISPOSITION: Patient is stable for discharge home with home care for antibiotics. FOLLOWUP: 1. Dr. Li. 2. Repeat MRI. 3. Dr. Albrecht. 4. Blood sugar control. PHYSICAL EXAMINATION: VITAL SIGNS: Today, temperature 36.7 blood pressure 137/ 84, heart rate in the 70s, respirations 16, 95% on room air. GENERAL: Lying in bed, no acute distress. HEENT: PERRLA. Moist mucous membranes. CV: Regular rhythm. LUNGS: Clear. ABDOMEN: Soft, nontender, nondistended. Positive bowel sounds. : No Nava. MUSCULOSKELETAL: Right hand with improved swelling, increased range of motion, can form better grip assembler, atrophy of the left upper extremity. PSYCH: Alert and oriented x3. TIME SPENT ON DISCHARGE: Greater than 30 minutes bedside with patient, counseling on medications, insulin, and followup plan. /[id number]/MODL MTDD
--- NOTE | 2018-09-24 13:58 | ASMTCMCOM ---
CM Note CM Note Notes: Pt left before [facility] came to see him, Shalonda will call pt to f/u. DC Plan: [facility] Date Signed: 09/24/2018 01:57 PM Electronically Signed By:Jane Rodriguez RN
--- NOTE | 2018-09-24 14:05 | ASMTDCNOTE ---
Case Management Discharge Discharge Order Complete? Answers: Yes Patient to Obtain Answers: Other Notes: [facility] Medic[facility] Transportation Arranged Answers: Family/Friends Faxed Final Orders Answers: Yes Discharge Comments Notes: D/w , final orders faxed. Shalonda at [facility] and Mackenzie at [facility] notified. Pt left before Shalonda could meet with him to give him the iv extension. She will call pt and follow up. Date Signed: 09/24/2018 02:05 PM Electronically Signed By:Jane Rodriguez RN
--- NOTE | 2018-09-24 16:39 | ASDISCHSUM ---
Discharge Information Plan Status:IV ABX/Infusion Medically Cleared to Leave: Discharge Date:09/24/2018 01:30 PM D/C Disposition:Home Health Service [facility] D/C Disposition:Home, Routine, Self-Care Projected Discharge Date:09/24/2018 11:00 AM Transportation at D/C:Friend Discharge Delay Reason: Follow-Up Date:09/24/2018 11:00 AM Discharge Slot: Final Diagnosis: Placement Information Referral Type:Home Infusion Referral ID:[id number] Provider Name:[facility] Address 1:[address] Address 2: City:[place] Selection Factors: State:[place] Referral Type:*Home Health Care Services Referral ID:[id number] Provider Name:[facility] Address 1:[address] , [address] Address 2: City:[place] Selection Factors: State:[place] Patient Contact Information Contact Name:JASON Relationship:Doug Address: Work Phone: City: [facility] Phone: [facility]/Zip Code: Email: Financial Information Financial Class:Medicaid Primary Plan Desc:[facility] Primary Plan Number:[id number] Secondary Plan Desc: Secondary Plan Number: Assessment Information LACE LACE Length of stay for Answers: 3 days current admission Acuity / Level of Answers: Yes Care: Did the patient have an inpatient admission? Comorbidities - select Answers: Diabetes (uncontrolled or all that apply controlled) Other Notes: HTN; HLD # of Emergency department Answers: 1-2 visits in the last 6 months Score: 9 Date Signed: 09/24/2018 01:42 PM Electronically Signed By:Jane Rodriguez RN SAQIB CM Progress Note CM Note CM Note Notes: Pt is a 57 y/o man admitted for osteomyelitis. ID is consulting. Pt is currently on iv ancef. Needs are TBD at this time. CM to follow. Plan: TBD Date Signed: 09/21/2018 12:01 PM Electronically Signed By:HIGINIO Mirza BC CM Progress Note CM Note CM Note Notes: Pts case discussed w/ TRUNG Dutton. Pt is getting a GIDEON today in [facility]. Pt will need ivabx at time of d/c. Referral sent to [facility] and several HC agencies. CM to follow. Plan: [facility] barrera/ TRUNG SKINNER Date Signed: 09/23/2018 11:49 AM Electronically Signed By:HIGINIO Mirza BC CM Progress Note CM Note CM Note Notes: Pt left before [facility] came to see him, Shalonda will call pt to f/u. DC Plan: [facility] + [facility] Date Signed: 09/24/2018 01:57 PM Electronically Signed By:Jane Rodriguez RN Case Management Discharge Plan Note Case Management Discharge Discharge Order Complete? Answers: Yes Patient to Obtain Answers: Other Notes: [facility] Medications Transportation Arranged Answers: Family/Friends Faxed Final Orders Answers: Yes Discharge Comments Notes: D/w MD, final orders faxed. Shalonda at [facility] and Mackenzie at [facility] notified. Pt left before Shalonda could meet with him to give him the iv extension. She will call pt and follow up. Date Signed: 09/24/2018 02:05 PM Electronically Signed By:Jane Rodriguez RN Intervention Information
== END 2018-09-24 13:30 | disposition home or self-care (01) | DRG 344 ==
LOC: F3E 15:28
PROVIDERS: ADMIT Internal Medicine; ATTEND Internal Medicine
PROC: 0R9P3ZX Drainage of Left Wrist Joint, Percutaneous Approach, Diagnostic (ICD-10-PCS; principal; 2018-09-21)
PROC: 02HV33Z Insertion of Infusion Device into Superior Vena Cava, Percutaneous Approach (ICD-10-PCS; 2018-09-22)
PROC: B246ZZ4 Ultrasonography of Right and Left Heart, Transesophageal (ICD-10-PCS; 2018-09-23)
DX: M86.142 Other acute osteomyelitis, left hand (principal); M10.9 Gout, unspecified; G06.1 Intraspinal abscess and granuloma; M46.22 Osteomyelitis of vertebra, cervical region; R78.81 Bacteremia; B95.61 Methicillin susceptible Staphylococcus aureus infection as the cause of diseases classified elsewhere; E87.5 Hyperkalemia; E11.65 Type 2 diabetes mellitus with hyperglycemia; N17.9 Acute kidney failure, unspecified; I10 Essential (primary) hypertension; E78.5 Hyperlipidemia, unspecified; Z79.4 Long term (current) use of insulin
CPT/HCPCS: 82784-90; A9585; C1751; J0690; J1815; J2250; J3010

== ENCOUNTER 2018-10-03 11:20 | Emergency (ER) | payer MEDICAID ==
[2018-10-03] MEDS ORDERED: ALTEPLASE 2 MG VIAL IVP PRN (11:34)
--- NOTE | 2018-10-03 11:36 | EDPHY ---
H & P Stated Complaint: PICC line came out last night-due for 6 more wks of antbx Time Seen by Provider: 10/03/18 11:32 HPI/ROS: CHIEF COMPLAINT: PICC line malfunction HISTORY OF PRESENT ILLNESS: The patient presents the ED after he accidentally dislodged his PICC line from his right upper extremity earlier today. The patient is currently receiving long-term IV antibiotics for osteomyelitis. The patient denies any acute numbness, weakness, fever or pain. REVIEW OF SYSTEMS: A comprehensive 10 point review of systems is otherwise negative aside from elements mentioned in the history of present illness. Source: Patient - Medical/Surgical History Hx Asthma: No Hx Chronic Respiratory Disease: No Hx Diabetes: Yes Hx Cardiac Disease: No Hx Renal Disease: No Hx Cirrhosis: No Hx Alcoholism: No Hx HIV/AIDS: No Hx Splenectomy or Spleen Trauma: No Other PMH: DMII, HTN, hyperlipidemia, staph infction in blood - Social History Smoking Status: Never smoked - Physical Exam Exam: General Appearance: Alert, no distress Eyes: Pupils equal and round no pallor or injection ENT, Mouth: Mucous membranes moist Respiratory: There are no retractions, lungs are clear to auscultation Cardiovascular: Regular rate and rhythm Gastrointestinal: Abdomen is soft and nontender, no masses, bowel sounds normal Neurological: 5/5 strength noted all 4 extremities Skin: Warm and dry, no rashes Extremities: symmetrical, full range of motion, no evidence Constitutional: Initial Vital Signs Temperature (C) 36.6 C 10/03/18 11:23 Heart Rate 69 10/03/18 11:23 Respiratory Rate 16 10/03/18 11:23 Blood Pressure 141/77 H 10/03/18 11:23 O2 Sat (%) 96 10/03/18 11:23 O2 Delivery Mode Room Air Allergies/Adverse Reactions: No Known Allergies Allergy (Verified 09/20/18 10:44) Home Medications: Medication Instructions Recorded Aspirin EC [Aspirin EC 81 mg (*)] 81 mg PO HS 09/20/18 Atorvastatin Calcium [Lipitor 10 10 mg PO DAILY 09/20/18 mg (*)] Colchicine [Colchicine (*)] 0.6 mg PO DAILY 09/20/18 Ibuprofen [Motrin (*)] 200 - 400 mg PO HS PRN 09/20/18 Lisinopril [Zestril 5 mg (*)] 5 mg PO DAILY 09/20/18 Metformin HCl [Metformin 1000 mg] 1,000 mg PO BIDMEAL 09/20/18 Indomethacin [Indocin 25 mg (*)] 50 mg PO TIDMEAL PRN #0 09/24/18 Insulin Glargine [Lantus Syringe] 12 units SC DAILY #1 vial 09/24/18 ceFAZolin 2 GM/DEXTROSE [Ancef] 2 gm IV Q8H bag 09/24/18 Medical Decision Making ED Course/Re-evaluation: The patient is nontoxic well-appearing and in no acute distress. The patient accidentally dislodged his PICC line. I spoke with Dr. Nicole from interventional radiology who will make arrangements to have the patient's PICC line replaced. The patient will be discharged home and continue his regular outpatient antibiotic regimen. Departure - Departure Disposition: Home, Routine, Self-Care Clinical Impression: Status post PICC central line placement Osteomyelitis of left hand Qualifiers: Osteomyelitis type: other acute Qualified Code(s): M86.142 - Other acute osteomyelitis, left hand Condition: Good Instructions: Peripherally Inserted Central Catheters and Midline Catheters in... (DC) Referrals: Amrita Skaggs MD [Primary Care Provider] - As per Instructions
[2018-10-03 13:34] VITALS: BP 139/78
== END 2018-10-03 13:33 | disposition home or self-care (01) ==
DX: T82.524A Displacement of infusion catheter, initial encounter (principal)
CPT/HCPCS: 76937; 77001; 99284; C1751

== ENCOUNTER → 2018-10-07 | Outpatient (CLI) | payer MEDICAID ==
[~2018-10-07] MED LIST: GADOBUTROL 10 ML VIAL IVP ONE
== END ==
LOC: FIMAGING 15:00
PROVIDERS: ATTEND Internal Medicine Infectious Disease
DX: M46.22 Osteomyelitis of vertebra, cervical region (principal); B95.61 Methicillin susceptible Staphylococcus aureus infection as the cause of diseases classified elsewhere; M50.221 Other cervical disc displacement at C4-C5 level
CPT/HCPCS: A9585

== ENCOUNTER → 2018-11-01 | Outpatient (CLI) | payer MEDICAID | LOC: FIMAGING 13:48 | PROVIDERS: ATTEND Internal Medicine Infectious Disease | DX: M46.96 Unspecified inflammatory spondylopathy, lumbar region (principal); M46.20 Osteomyelitis of vertebra, site unspecified; M86.28 Subacute osteomyelitis, other site; R78.81 Bacteremia; A49.01 Methicillin susceptible Staphylococcus aureus infection, unspecified site | CPT/HCPCS: A9585 ==